=== PATIENT | female | born 1985 | race Caucasian/White ===

== ENCOUNTER 2021-01-06 15:16 | Outpatient (REF) | payer OTHER, SELFPAY ==
--- NOTE | ~2021-01-06 | XR_ITS ---
EXAMINATION: XR WRIST, LEFT CLINICAL INFORMATION: Pain left wrist COMPARISON: None TECHNIQUE: PA, lateral, and oblique views of the left wrist. FINDINGS: The bones and soft tissues are normal. No fracture. Alignment is anatomic with normal joint spaces. No erosions or abnormal soft tissue calcifications. XR/XR wrist LT min 3V IMPRESSION: Unremarkable left wrist exam.
== END 2021-01-06 15:17 | disposition home or self-care (01) ==
LOC: HO.HMGCX 15:16
PROVIDERS: Visit Provider Nurse Practitioner Family
DX: M25.532 Pain in left wrist (principal)
CPT/HCPCS: 73110

== ENCOUNTER 2023-08-21 09:43 | Outpatient (REF) | payer OTHER, SELFPAY ==
[2023-08-21 12:59] LABS: MANUAL DIFF FLAG NO
[2023-08-21 13:10] LABS: Basophils Percent Auto 0.6 % (0-2); Eosinophils Absolute Auto 0.2 X10*3/uL (0.0-0.4); Eosinophils Percent Auto 3.4 % (0-4); Hemoglobin 12.9 g/dl (12.0-16.0); Imm Gran Abs Auto 0.02 X10*3/uL (0.00-0.03); Imm Gran Pct Auto 0.4 % (0.0-0.4); Lymphocytes Absolute Auto 2.1 X10*3/uL (1.2-4.9); Lymphocytes Percent Auto 39.3 % (20-40); Mean Corpuscular HGB Conc 33.1 g/dl (31.0-35.0); Mean Corpuscular Hemoglobin 29.9 pg (27.0-33.0); Mean Corpuscular Volume 90.3 fL (80.0-98.0); Mean Platelet Volume 11.9 fL (9.4-12.3); Monocytes Absolute Auto 0.4 X10*3/uL (0.1-1.2); Monocytes Percent Auto 6.6 % (2-11); Neutrophils Absolute Auto 2.7 x10*3/uL (2.0-8.3); Neutrophils Percent Auto 49.7 % (45-73); Platelet Count 242 X10*3/uL (160-400); Red Blood Count 4.32 X10*6/uL (4.20-5.50); Red Cell Distribution Width 12.9 % (11.0-16.0); White Blood Count 5.3 X10*3/uL (4.8-10.8)
[2023-08-21 13:15] LABS: Appearance Urine Clear; Color Urine Yellow; Glucose Urine UA Negative (Negative); Leukocyte Esterase Urine Negative (Negative); Nitrite Urine Negative (Negative); PH 7.5 (5.0-9.0); Urine Blood Negative (Negative); Urine Ketones Negative (Negative); Urine Protein Negative (Neg-Trace)
[2023-08-21 13:40] LABS: Alanine Aminotransferase 12 U/L (0-31); Alkaline Phosphatase 49 U/L (39-117); Anion Gap 11 (12-20); Aspartate Amino Transferase 13 U/L (5-31); Bilirubin Total 0.4 mg/dL (0.0-1.0); Blood Urea Nitrogen 12 mg/dL (9-16); Calcium 8.9 mg/dL (8.4-10.2); Carbon Dioxide 23 mmol/L (22-29); Chloride 108 mmol/L (96-108); Cholesterol 166 mg/dL (<200); Estimated Glomerular Filt Rate > 60; Glucose Fasting 84 mg/dL (60-99); HDL Cholesterol 52 mg/dL (>40); LDL Cholesterol Calculated 103 mg/dL (<100); Potassium 3.8 mmol/L (3.3-5.1); Sodium 138 mmol/L (135-145); Total Protein 6.7 g/dL (6.5-8.0); Triglycerides 57 mg/dL (<150)
== END 2023-08-21 09:44 | disposition home or self-care (01) ==
LOC: HO.HMGCLDS 09:43
PROVIDERS: PCP Nurse Practitioner Family; Visit Provider Nurse Practitioner Family
DX: Z00.00 Encounter for general adult medical examination without abnormal findings (principal)
CPT/HCPCS: 36415; 80053; 80061; 81003; 84443; 85025

== ENCOUNTER 2023-10-02 08:21 | Outpatient (AMB) | payer OTHER, SELFPAY ==
[2023-10-02 08:28] VITALS: BP 98/60; PULSE 75; O2SAT 99; BMI 29.9
--- NOTE | 2023-10-02 08:28 | MHC.PC.OV ---
Vital Signs 10/02/23 08:28 Height 4 ft 9 in Weight 138 lb BMI 29.9 BP 98/60 Blood Pressure Location Lt brachial Position Sitting Pulse 75 Pulse Source Pulse Oximeter Pulse Oximetry (%) 99 Oxygen Delivery Method Room Air Intake Visit Reasons: PE Intake Note: pattient is here for physical exam: Last papsmear 04/2023 Rn Social Services Required: No Accompanied by: Self / Same As Patient Is last menstrual period known: Yes Last menstrual period: 09/26/23 Allergies sulfamethoxazole Allergy (Unknown, Verified 10/02/23 08:56) rash Medication List - Last Reconciled 10/02/23 by HIRAL Omalley albuterol sulfate 90 mcg/actuation 1 puff inhalation QID PRN 30 days Tobacco use date assessed: 10/02/23 Dental Screening Dental Screen Date: 10/02/23 Did you have a dental visit in the last 12 months?: Yes Did you have a dental problem in the last 6 months where you did not have access to dental care?: No Was dental information given to patient?: Patient has dentist HPI PE HPI Details Pt is here for a PE. Labs were already performed. 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 [facility] Surgical History History of section Family History Father Unknown family medical history Mother Unknown family medical history Maternal Grandmother No problems noted. Maternal Grandfather No problems noted. Paternal Grandfather No problems noted. Paternal Grandmother No problems noted. Brother No problems noted. Brother No problems noted. Son No problems noted. Paternal Aunt Breast cancer Social History Housing: House Alcohol intake: never Patient Tobacco Use Status: Never used Tobacco e-Cigarette/Vaping Use: Never Used Second Hand Smoke Exposure: No service: No Current occupational status: employed Current occupation: [employer] Current occupational exposures/hazards: Yes Cognitive needs: No Hearing needs: No Vision needs: No Female Reproductive History Menstrual Date of last menstrual period: 09/26/23 Questionnaire PHQ-9 Over the last 2 weeks, how often have you been bothered by any of the following problems? 1. Little interest or pleasure in doing things: not at all 2. Feeling down, depressed, or hopeless: not at all 3. Trouble falling or staying asleep, or sleeping too much: not at all 4. Feeling tired or having little energy: not at all 5. Poor appetite or overeating: several days 6. Feeling bad about yourself - or that you are a failure or have let yourself or your family down: not at all 7. Trouble concentrating on things, such as reading the newspaper or watching television: not at all 8. Moving or speaking so slowly that other people could have noticed. Or the opposite - being so fidgety or restless that you have been moving around a lot more than usual: not at all 9. Thoughts that you would be better off or of hurting yourself in some way: not at all Total score: 1 Depression Screening Interpretation: Negative Depression Screening Done: Yes 04673 - PHQ-9 Billing: Yes Source: Developed by Drs. Mj Cruz, Elsy Gregorio, James Ozuna and colleagues, with an educational leif from [employer]. Thrive Questionnaire Date Thrive assessed: 10/02/23 I am a: Patient What is your living situation today?: I have a steady place to live Within the past 12 months, did the food you bought not last and you didn't have the money to get more?: Never true Within the past 12 months, did you worry whether your food would run out before you got money to buy more?: Never true Do you have trouble paying for medicines?: No Do you have trouble getting transportation to medical appointments?: No Do you have trouble paying your heating and electricity bill?: No Do you have trouble taking care of your child, family member or friend?: No Do you have trouble with day-to-day activities such as bathing, preparing meals, shopping, managing finances, etc.?: No Are you currently unemployed and looking for a job?: No Are you interested in more education?: No Please select the resources that you would like help with: None Currently or been in a relationship where the following occur: No concerns reported THRIVE Score: 0 AUDIT C Alcohol Use Questionnaire (AUDIT-C) 1. How often do you have a drink containing alcohol?: Never 3. How often do you have six or more drinks on one occasion?: Never Total Score: 0 Score Reviewed/Action Taken: Yes ZAIN-7 AMB Questionnaire ZAIN-7 Date ZAIN - 7 assessed: 10/02/23 Feeling nervous, anxious, or on edge: 1 = Several days Not being able to stop or control worryin = Not at all Worrying too much about different things: 0 = Not at all Trouble relaxin = Not at all Being so restless that it is hard to sit still: 0 = Not at all Becoming easily annoyed or irritable: 0 = Not at all Feeling afraid as if something awful might happen: 0 = Not at all Total ZAIN-7 score (0-4 normal; 5-9 mild; 10-14 moderate; 15-21 severe): 1 Source: Developed by Drs. Mj Cruz, Elsy Gregorio, James Ozuna and colleagues, with an educational leif from [employer]. ZAIN-7 Assessment Billing ZAIN-7 Assessment Tool: ZAIN-7 Assessment 99570 Review of Systems Const Denies chills and Denies fever(s) Eyes Denies blurry vision ENT Denies vertigo, Denies dizziness and Denies sore throat Card Denies chest pain at rest, Denies chest pain with activity, Denies diaphoresis, Denies dyspnea and Denies dyspnea on exertion Resp Denies cough, Denies dyspnea, Denies dyspnea on exertion and Denies wheezing GI Denies abdominal pain, Denies melena, Denies hematochezia, Denies constipation, Denies diarrhea and Denies loose stools Denies hematuria Musc Denies numbness and Denies tingling Skin/Breast Denies lesions Neuro Denies vertigo, Denies dizziness, Denies numbness and Denies tingling Psych Denies anxiety, Denies depression, Denies homicidal ideation, Denies suicidal ideation and Denies other (substance abuse) Aller/Immun Denies wheezing Physical exam (Primary Care) Vital Signs: Last Vital Signs Pulse 75 10/02/23 08:28 BP 98/60 10/02/23 08:28 Pulse Ox 99 10/02/23 08:28 Oxygen Delivery Method Room Air 10/02/23 08:28 BMI result Body Mass Index 29.9 Tobacco/Smoking Status: Tobacco use Status Tobacco use date assessed 10/02/23 10/02/23 08:30 Patient Tobacco Use Status Never used Tobacco 10/02/23 08:30 e-Cigarette/Vaping Use Never Used 10/02/23 08:30 PHQ-9: PHQ-9 Score PHQ-9: Total score 1 10/02/23 08:37 Depression Screening Interpretation: Negative Thrive Assessment: Date of Thrive Assessment Date Thrive assessed 10/02/23 10/02/23 08:30 Currently or been in a relationship where the following occur: No concerns reported Const General: cooperative Nutritional Appearance: well nourished Orientation/consciousness: patient oriented x3 HENMT Head: Yes normal to inspection, Yes normocephalic and Yes atraumatic Ears: TM's normal bilaterally Eyes General: appearance normal, both eyes and all related structures Alignment and Position: alignment normal and position normal Neck Neck: Yes normal visual inspection, Yes no lymphadenopathy and Yes supple Resp Effort & Inspection: normal respiratory effort Auscultation: clear to auscultation bilaterally Cardio Rate: regular rate Rhythm: regular rhythm Heart sounds: S1 normal heart sound present, S2 normal heart sound present and no murmurs GI Palpation (GI): Soft to palpation and nontender Auscultation: normal bowel sounds Skin Rashes: no rashes Neuro General: patient oriented x3, moves all extremities, no focal motor deficits and deep tendon reflexes 2+ bilaterally Romberg Test: Negative Psych Appearance: grossly normal Mental Status: mental status grossly normal Speech and movement: Normal speech and movement present Affect: normal affect Attitude: cooperative Thought process: Normal thought process present Thought content: Normal thought content present Insight: Good insight present (Psych) Judgement: Good judgement present (Psych) Assessment and Plan Assessment & Plan (1) Physical exam: Code(s): Z00.00 - Encounter for general adult medical examination without abnormal findings Plan: Labs already performed Plan The patient agreed to the use of a medical staff director for this encounter. Scribed for HIRAL Ordonez by Haylee Mcgrath medical staff director, on 10/02/2023 at 08:55 EST. Coding Level of Care Code Est Pt Prev Care 18-39y(65038) Diagnoses Physical exam Z00.00 Additional Codes ZAIN-7 Assessment Billing - ZAIN-7 Assessment Tool: ZAIN-7 Assessment 61762 ([id number])
== END 2023-10-02 09:07 | disposition home or self-care (01) ==
PROVIDERS: PCP Nurse Practitioner Family; Visit Provider Nurse Practitioner Family
DX: Z00.00 Encounter for general adult medical examination without abnormal findings (principal)
CPT/HCPCS: 99395

== ENCOUNTER 2025-01-02 09:17 | Outpatient (REF) | payer OTHER, SELFPAY ==
[2025-01-02 12:40] LABS: MANUAL DIFF FLAG NO
[2025-01-02 12:47] LABS: Appearance Urine Turbid; Glucose Urine UA Negative (Negative); Hematocrit 38.2 % (37.0-47.0); Hemoglobin 12.7 g/dl (12.0-16.0); Imm Gran Abs Auto 0.02 X10*3/uL (0.00-0.03); Imm Gran Pct Auto 0.4 % (0.0-0.4); Lymphocytes Absolute Auto 1.7 X10*3/uL (1.2-4.9); Mean Corpuscular HGB Conc 33.2 g/dl (31.0-35.0); Mean Corpuscular Hemoglobin 29.6 pg (27.0-33.0); Mean Corpuscular Volume 89.0 fL (80.0-98.0); NRBC Abs Auto 0.000 X10*3/uL (0.0-0.012); NRBC Pct Auto 0.0 /100WBC (0.0-0.2); PH 5.5 (5.0-9.0); Platelet Count 262 X10*3/uL (160-400); Red Blood Count 4.29 X10*6/uL (4.20-5.50); Specific Gravity - Urine 1.025 (1.005-1.025); UMIC TRIGGER UACC YES; White Blood Count 5.0 X10*3/uL (4.8-10.8)
[2025-01-02 13:02] LABS: Alanine Aminotransferase 19 U/L (0-31); Albumin Level 4.4 g/dL (3.5-5.0); Alkaline Phosphatase 53 U/L (39-117); Anion Gap 11 (12-20); Aspartate Amino Transferase 22 U/L (5-31); Blood Urea Nitrogen 11 mg/dL (9-16); Calcium 8.9 mg/dL (8.4-10.2); Carbon Dioxide 24 mmol/L (22-29); Chloride 109 mmol/L (96-108); Cholesterol 156 mg/dL (<200); Estimated Glomerular Filt Rate > 60; HDL Cholesterol 49 mg/dL (>40); Potassium 3.8 mmol/L (3.3-5.1); Sodium 140 mmol/L (135-145); Total Protein 7.0 g/dL (6.5-8.0); Triglycerides 64 mg/dL (<150)
== END 2025-01-02 09:18 | disposition home or self-care (01) ==
LOC: HO.HMGCLDS 09:17
PROVIDERS: PCP Nurse Practitioner Family; Visit Provider Nurse Practitioner Family
DX: Z00.00 Encounter for general adult medical examination without abnormal findings (principal); Z13.29 Encounter for screening for other suspected endocrine disorder; Z13.21 Encounter for screening for nutritional disorder; Z13.0 Encounter for screening for diseases of the blood and blood-forming organs and certain disorders involving the immune mechanism; Z13.6 Encounter for screening for cardiovascular disorders
CPT/HCPCS: 36415; 80053; 80061; 81001; 82306; 84443; 85025

== ENCOUNTER 2025-01-08 07:58 | Outpatient (AMB) | payer OTHER, SELFPAY ==
[2025-01-08 08:04] VITALS: BP 102/62; PULSE 70; RESP 16; O2SAT 96; BMI 23.4
--- NOTE | 2025-01-08 08:04 | A.OFFPC_ITS ---
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 Accompanied by: Self / Same As Patient Allergies sulfamethoxazole Allergy (Unknown, Verified 01/08/25 08:06) rash Medication List - Last Reconciled 01/08/25 by KATELYNN Omalley albuterol sulfate 90 mcg/actuation 1 puff inhalation QID PRN 30 days Tobacco use date assessed: 01/08/25 Dental Screening Dental Screen Date: 01/08/25 Did you have a dental visit in the last 12 months?: Yes Did you have a dental problem in the last 6 months where you did not have access to dental care?: No Was dental information given to patient?: Patient has dentist HPI PE HPI Details History of Present Illness The patient is a 39 year old female presenting for a physical exam. Recent lab work revealed microscopic hematuria. The patient was not menstruating at the time of the urine sample but reports some spotting. She denies any history of kidney stones. The patient reports active weight loss through calorie counting. She has no history of smoking. Health Maintenance The patient presents for a physical exam and is actively losing weight successfully through diet and calorie counting. She will receive an influenza vaccine today. Social History - Substance use: The patient has no hist ory of smoking. - Weight management: The patient is acti vely losing weight by counting calories. Review of Systems - Genitourinary: Reports spotting. Denie s flank pain or a history of kidney stones. - Cardiovascular: Denies chest pain. - Respiratory: Denies shortness of breat h. - Gastrointestinal: Denies abdominal brandan n, hematochezia, constipation, or diarrhea. - : denies any cva tenderness - Psychiatric: Denies suicidal or homici serena ideation. - Constitutional: Reports active weight loss. Physical Exam General: Cooperative, healthy appearing, comfortable, no acute distress and well developed Orientation: Patient oriented x3 Limitations: No limitations Head: Normal to inspection Ears: Hearing grossly normal bilaterally Nose: Normal external nose present Face and sinus: Normal facial exam Eyes: Appearance normal, both eyes and all related structures Neck: Normal visual inspection and Yes full ROM Respiratory: Normal respiratory effort and able to speak in complete sentences. Clear to auscultation bilaterally Cardiovascular: Regular rate and rhythm. Normal S1 and S2 GI: Normal to inspection. Soft to palpation and nontender gu: no cva tenderness Skin: No rashes or lesions noted Neuro: Patient oriented x3 Extremities: Normal to inspection Results - Labs: Recent lab results were noted to be fairly impressive, with the exception of microscopic hematuria found on urinalysis. Plan 1. Microscopic Hematuria The patient was found to have microscopic hematuria on recent labs. She denies any signs or symptoms of kidney stones, including flank pain. While she reports some spotting, she was not menstruating at the time of the sample collection. To further evaluate the hematuria, a test, repeat urinalysis, urine cytology, and a urine culture will be obtained. 2. physical exam Discussion Notes I informed the patient that her recent lab results were impressive, with the exception of microscopic hematuria. We discussed the plan to investigate this finding further with a repeat urinalysis, urine cytology, and a urine culture. A test will also be conducted. I acknowledged her successful weight loss efforts, and she agreed to receive a flu vaccine during today's visit. Patient Instructions - We will collect another urine sample f rom you today to repeat the urinalysis, check for infection, and perform a urine cytology test. - A test will be performed. - You will receive a flu shot today. - Continue with your diet and calorie co unting for weight loss. [facility] Surgical History History of section Family History Father Unknown family medical history Mother Unknown family medical history Maternal Grandmother No problems noted. Maternal Grandfather No problems noted. Paternal Grandfather No problems noted. Paternal Grandmother No problems noted. Brother No problems noted. Brother No problems noted. Son No problems noted. Paternal Aunt Breast cancer Social History Housing: House Alcohol intake: never Patient Tobacco Use Status: Never used Tobacco e-Cigarette/Vaping Use: Never Used Second Hand Smoke Exposure: No service: No Current occupational status: employed Current occupation: [employer] Current occupational exposures/hazards: Yes Cognitive needs: No Hearing needs: No Vision needs: No Questionnaire PHQ-9 Over the last 2 weeks, how often have you been bothered by any of the following problems? 1. Little interest or pleasure in doing things: not at all 2. Feeling down, depressed, or hopeless: not at all 3. Trouble falling or staying asleep, or sleeping too much: not at all 4. Feeling tired or having little energy: not at all 5. Poor appetite or overeating: not at all 6. Feeling bad about yourself - or that you are a failure or have let yourself or your family down: not at all 7. Trouble concentrating on things, such as reading the newspaper or watching television: not at all 8. Moving or speaking so slowly that other people could have noticed. Or the opposite - being so fidgety or restless that you have been moving around a lot more than usual: not at all 9. Thoughts that you would be better off or of hurting yourself in some way: not at all Total score: 0 Depression Screening Interpretation: Negative Depression Screening Done: Yes 89476 - PHQ-9 Billing: Yes Source: Developed by Drs. Mj Cruz, Elsy rGegorio, James Ozuna and colleagues, with an educational leif from [employer]. Thrive Questionnaire Date Thrive assessed: 10/02/23 I am a: Patient What is your living situation today?: I have a steady place to live Within the past 12 months, did the food you bought not last and you didn't have the money to get more?: Never true Within the past 12 months, did you worry whether your food would run out before you got money to buy more?: Never true Do you have trouble paying for medicines?: No Do you have trouble getting transportation to medical appointments?: No Do you have trouble paying your heating and electricity bill?: No Do you have trouble taking care of your child, family member or friend?: No Do you have trouble with day-to-day activities such as bathing, preparing meals, shopping, managing finances, etc.?: No Are you currently unemployed and looking for a job?: No Are you interested in more education?: No Please select the resources that you would like help with: None Currently or been in a relationship where the following occur: No concerns reported THRIVE Score: 0 ZAIN-7 AMB Questionnaire ZAIN-7 Date ZAIN - 7 assessed: 01/08/25 Feeling nervous, anxious, or on edge: 0 = Not at all Not being able to stop or control worryin = Not at all Worrying too much about different things: 0 = Not at all Trouble relaxin = Not at all Being so restless that it is hard to sit still: 0 = Not at all Becoming easily annoyed or irritable: 0 = Not at all Feeling afraid as if something awful might happen: 0 = Not at all Total ZAIN-7 score (0-4 normal; 5-9 mild; 10-14 moderate; 15-21 severe): 0 Source: Developed by Drs. Mj Cruz, Elsy Gregorio, James Ozuna and colleagues, with an educational leif from [employer]. ZAIN-7 Assessment Billing ZAIN-7 Assessment Tool: ZAIN-7 Assessment 19072 Physical exam (Primary Care) Vital Signs: Last Vital Signs Pulse 70 01/08/25 08:04 Resp 16 01/08/25 08:04 BP 102/62 01/08/25 08:04 Pulse Ox 96 01/08/25 08:04 Oxygen Delivery Method Room Air 01/08/25 08:04 BMI result Body Mass Index 23.4 Tobacco/Smoking Status: Tobacco use Status Tobacco use date assessed 01/08/25 01/08/25 08:10 Patient Tobacco Use Status Never used Tobacco 01/08/25 08:10 e-Cigarette/Vaping Use Never Used 01/08/25 08:10 PHQ-9: PHQ-9 Score PHQ-9: Total score 0 01/08/25 08:15 Depression Screening Interpretation: Negative Thrive Assessment: Date of Thrive Assessment Date Thrive assessed 10/02/23 01/08/25 08:10 Currently or been in a relationship where the following occur: No concerns reported Office Procedures Flu Questionnaire Does the patient have a severe egg allergy?: No Does the patient have severe life threatening allergies?: No Does the patient have a fever or illness today?: No Has the patient ever had Guillain-[place] Syndrome?: No Has the patient ever had any past reaction to a flu shot?: No Immunizations Fluarix 3600-0701 (PF) 45 mcg (15 mcg x 3)/0.5 mL IM syringe Performing Provider: HIRAL Omalley Performing Location[place] [facility] Administered by: Marta Bhardwaj MA on 01/08/25 08:26 Dose Route Admin Location Dispensed Lot Number Expiration Date NDC Paint Trimmer Pipe Bowls 0.5 mL IM Right Deltoid 0.5 mL [id number] 08/04/25 [id number] [employer] V[employer] Given Date VIS Provided VIS Publication Date 01/08/25 Single Vaccine 24 Eligibility Eligibility Date Funding Source Not [facility] Eligible 01/08/25 Private Coding Level of Care Code Est Pt Prev Care 18-39y(01898) Diagnoses Microscopic hematuria R31.29 Encounter for routine adult physical exam with abnormal findings Z00. Additional Codes ZAIN-7 Assessment Billing - ZAIN-7 Assessment Tool: ZAIN-7 Assessment 93193 ([id number]) PHQ-9 - 60586 - PHQ-9 Billing: Yes ([id number]) Assessment & Plan Assessment & Plan (1) Microscopic hematuria: Code(s): R31.29 - Other microscopic hematuria Category: Medical (2) Encounter for routine adult physical exam with abnormal findings: Code(s): Z00.01 - Encounter for general adult medical examination with abnormal findings Category: Medical Plan . Orders: Orders Complete Blood Count Auto Diff 01/02/25 Z00.00 - Encounter for general adult medical examination without abnormal findings Lipid Panel 01/02/25 Z00.00 - Encounter for general adult medical examination without abnormal findings TSH reflex Free T4 01/02/25 Z00.00 - Encounter for general adult medical examination without abnormal findings UA CC w/rflx Micro + Cult 01/02/25 Z00.00 - Encounter for general adult medical examination without abnormal findings AMB HCG Urine Test Today R31.29 - Other microscopic hematuria MM screening mammo BI 10 Months Z12.31 - Encounter for screening mammogram for malignant neoplasm of breast Influenza [id number] Immunization Today Z23 - Encounter for immunization Comprehensive [place]. Panel Fast 01/02/25 Z00.00 - Encounter for general adult medical examination without abnormal findings Vitamin D 25-OH Total 01/02/25 Z00.00 - Encounter for general adult medical examination without abnormal findings UA CC w/rflx Micro + Cult Today R31. - Other microscopic hematuria Urine Culture Today R31. - Other microscopic hematuria Urine Cytology Today R31. - Other microscopic hematuria
== END 2025-01-08 08:28 | disposition home or self-care (01) ==
LOC: HO.HMCC 07:59
PROVIDERS: PCP Nurse Practitioner Family; Visit Provider Nurse Practitioner Family
DX: R31.29 Other microscopic hematuria (principal); Z00.01 Encounter for general adult medical examination with abnormal findings; Z23 Encounter for immunization

== ENCOUNTER 2025-01-08 07:58 | Outpatient (REF) | payer OTHER, SELFPAY ==
[2025-01-08 10:48] LABS: Appearance Urine Clear; Glucose Urine UA Negative (Negative); PH 5.5 (5.0-9.0); Specific Gravity - Urine 1.025 (1.005-1.025); UMIC TRIGGER UACC YES
== END 2025-01-08 07:59 | disposition home or self-care (01) ==
LOC: HO.HMGCLDS 07:58
PROVIDERS: PCP Nurse Practitioner Family; Visit Provider Nurse Practitioner Family
DX: Z00.01 Encounter for general adult medical examination with abnormal findings (principal); Z23 Encounter for immunization; R31.29 Other microscopic hematuria
CPT/HCPCS: 81001; 88112; 90471; 90656; 96127